=== PATIENT | female | born 1950 | race Two or more races ===

== ENCOUNTER 2024-06-29 12:19 | Emergency (ER) | payer OTHER ==
[~2024-06-29] VITALS: Ht 160 cm; Wt 59.0 kg
[2024-06-29] MEDS ORDERED: FARXIGA5 MG (12:26)
[2024-06-29] MEDS ORDERED: ATORVASTATIN CA40 MG (12:26)
[2024-06-29] MEDS ORDERED: KETO10TA2 PO (15:20)
== END 2024-06-29 17:08 | disposition home or self-care (01) ==
LOC: ER 12:21
DX: S99.811A Other specified injuries of right ankle, initial encounter (principal); S82.891A Other fracture of right lower leg, initial encounter for closed fracture; W19.XXXA Unspecified fall, initial encounter; Y93.89 Activity, other specified; Y92.238 Other place in hospital as the place of occurrence of the external cause; Y99.8 Other external cause status; E11.9 Type 2 diabetes mellitus without complications